=== PATIENT | female | born 1955 | race Caucasian/White ===

== ENCOUNTER 2016-05-09 15:20 | Emergency (ER) | payer OTHER ==
[~2016-05-09 15:20] MED LIST: ADV250INH INH; ALBU17IN INH; ATOR1TAB18 PO; CARV6.25 PO; CLAR10CA3 PO; CLOP75TA2 PO; CORE6.25 OR; CYCL10TA PO; DIGO0.25 PO; DITR5TAB PO; ESTR3TA OR; ESTR3TA PO; ESTROGENS CONJ PO; FLEXERIL OR; FLON0.05 INH; FLON0.054; FLON1SPR; FURO40TA2 PO; IPRASOL4 INH; LANO0.252 OR; LANO250T12 PO; LASI40TA OR; LEVO150T7 PO; LEVO175T2 PO; LIPI80TA OR; LISI-542 PO; LISI10TA4 OR; LISI10TA4 PO; LORA10TA2 PO; LORATADINE OR; MAGN500T2 OR; NITR0.1S SL; NITR0.4S SL; NITR4TASL SL; NORT25CA2 PO; OXYB5TAB4 OR; PLAV75TA2; PLAV75TA2 OR; RANI15TA PO; SPIR1CAP INH; SYNT50TA OR; VITA10002 PO; VITA1CAP2 PO; VITMTA PO; ZANT150T OR; ZETI10TA2 PO
--- NOTE | 2016-05-09 18:47 | EDDOCDS ---
Physician Documentation [facility] Name: Ivy Amaro Age: 61 yrs Sex: Female : 1955 Arrival Date: 05/09/2016 Time: 15:20 Bed TR7 Private MD: Damon Duffy MD Disposition: 05/09/16 18:32 Discharged to Home/Self Care. Impression: Laceration without foreign body of right ring finger with damage to nail. - Condition is Stable. - Discharge Instructions: Tissue Adhesive Wound Care, [id number]. - Medication Reconciliation, Local Pharmacy Hours form. - Follow up: Damon Duffy; When: Call to arrange an appointment; Reason: Further diagnostic work-up, Recheck today's complaints, Continuance of care. - Problem is new. - Symptoms are unchanged. Historical: - Allergies: Aspirin; PENICILLINS; - Home Meds: 1. Advair Diskus 500-50 mcg/dose Inhl dsdv 1 puff 2 times per day 2. atorvastatin 80 mg oral tab 1 tab once daily 3. carvedilol 6.25 mg oral tab 2 times per day 4. clopidogrel 75 mg oral tab 1 tab once daily (Last dose: 05/09/2016) 5. cyclobenzaprine 10 mg Oral tab every night as needed 6. Digoxin 0.25mg Oral once daily 7. estrogens 0.3mg daily 8. ezetimibe 10 mg oral tab 1 tab once daily 9. fluticasone 50 mcg/actuation nasal spsn 10. furosemide 40 mg Oral tab 1 tab once daily 11. ipratropium-albuterol 0.5 mg-3 mg(2.5 mg base)/3 mL Inhl nebu 2 to 3 times a day 12. Levothyroxine 0.175 mg Oral once daily 13. lisinopril 10 mg Oral tab 1 tab once daily 14. loratadine 10 mg Oral TbDL 1 tab once daily 15. multivitamin Oral tab daily 16. nitroglycerine lingual spray as needed 17. nortriptyline 25 mg Oral cap at bedtime 18. oxybutynin chloride 5 mg Oral tab daily 19. ranitidine HCl 150 mg Oral cap 1 cap once daily 20. Spiriva with HandiHaler 18 mcg Inhl CpDv 1 cap once daily 21. Vitamin B-12 1,000 mcg Oral tab daily 22. Vitamin D D3 1000 mcg Oral daily - PMHx: CHF; CVA; Hypercholesterolemia; Hypothyroidism; [place]; - PSHx: CABG x 2; Stents x 2; Defribillator (AID); Appendectomy; - Immunization history:: Last tetanus immunization: unknown. - Family history: Not pertinent. - Social history: Smoking status: Patient states former smoker of tobacco. No barriers to communication noted. - : The pt / caregiver states he / she is not on anticoagulants. Home medication list is obtained from the patient. - Exposure Risk Screening:: None identified. Vital Signs: 05/09 15:23 BP 147 / 87; Pulse 110; Resp 18; Temp 97.6(O); Pulse Ox 100% on R/A; Weight 46.72 kg / ct3 103 lbs (R); Height 5 ft. 0 in. (152.40 cm) (R); Pain 7/10; 18:34 BP 115 / 68; Pulse 88; Resp 18; Temp 98.7; Pulse Ox 96% on R/A; Pain 6/10; ar3 15:23 Body Mass Index 20.12 (46.72 kg, 152.40 cm) ct3 Procedures: 18:28 Laceration repair:. btw Laceration: 18:28 Wound Repair of 0.2cm ( 0.1in ) full thickness laceration to palmar aspect of distal btw phalanx of right ring finger. Distal neuro/vascular/tendon intact. Wound prep: Simple cleansing by provider. Skin closed with 1 thin layer Dermabond using .. Dressed with bandaid. Patient tolerated well. MDM: 18:32 Financial registration complete. [email or web address] 18:33 [facility] Payment Agreement was scanned into [employer] and attached to record. [email or web address] Signatures: Karla TopeteRN RN kr3 Jose Patino PA PA jose guadalupew Genia Melendrez RN RN [facility] Heidi Barlow, Reg Reg [email or web address] The chart was reviewed and I authenticate all verbal orders and agree with the evaluation and treatment provided.Attachments: 18:33 [facility] Payment Agreement [email or web address] MTDD
--- NOTE | 2016-05-09 18:47 | EDDOCDS ---
Nurse's Notes [facility] Name: Ivy Amaro Age: 61 yrs Sex: Female : 1955 Arrival Date: 05/09/2016 Time: 15:20 Bed TR7 Private MD: Damon Duffy MD Diagnosis: Laceration without foreign body of right ring finger with damage to nail Presentation: 05/09 15:32 Presenting complaint: Patient states: cut tip of right fourth finger on scissors while [facility] trying to open package, on Plavix. Adult Sepsis Screening: The patient does not have new or worsening altered mentation. Patient's respiratory rate is less than 22. Systolic blood pressure is greater than 100. Patient has a qSOFA score of 0- Negative Sepsis Screen. Suicide/Homicide risk assessment- the patient denies having any suicidal and/or homicidal ideations and does not present with any other emotional, behavioral or mental health complaints. 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 Transition of care: patient was not received from another setting of care. 15:32 Acuity: MICHELET Level 4 [facility] 15:32 Method Of Arrival: Walkin/Carried/Asstd [facility] Triage Assessment: 15:38 General: Appears in no apparent distress, comfortable, Behavior is appropriate for age, [facility] cooperative. Pain: Location: palmar aspect of distal phalanx of right ring finger Pain currently is 5 out of 10 on a pain scale. HIV screening NA for this visit Offered previously. Injury Description: Laceration sustained to palmar aspect of distal phalanx of right ring finger is 0.5 to 2.5 cm long, not bleeding, home dressing saturated with bright red blood, fresh pressure dressing applied, no further bleeding noted on dressing, ice has been applied. Historical: - Allergies: Aspirin; PENICILLINS; - Home Meds: 1. Advair Diskus 500-50 mcg/dose Inhl dsdv 1 puff 2 times per day 2. atorvastatin 80 mg oral tab 1 tab once daily 3. carvedilol 6.25 mg oral tab 2 times per day 4. clopidogrel 75 mg oral tab 1 tab once daily (Last dose: 05/09/2016) 5. cyclobenzaprine 10 mg Oral tab every night as needed 6. Digoxin 0.25mg Oral once daily 7. estrogens 0.3mg daily 8. ezetimibe 10 mg oral tab 1 tab once daily 9. fluticasone 50 mcg/actuation nasal spsn 10. furosemide 40 mg Oral tab 1 tab once daily 11. ipratropium-albuterol 0.5 mg-3 mg(2.5 mg base)/3 mL Inhl nebu 2 to 3 times a day 12. Levothyroxine 0.175 mg Oral once daily 13. lisinopril 10 mg Oral tab 1 tab once daily 14. loratadine 10 mg Oral TbDL 1 tab once daily 15. multivitamin Oral tab daily 16. nitroglycerine lingual spray as needed 17. nortriptyline 25 mg Oral cap at bedtime 18. oxybutynin chloride 5 mg Oral tab daily 19. ranitidine HCl 150 mg Oral cap 1 cap once daily 20. Spiriva with HandiHaler 18 mcg Inhl CpDv 1 cap once daily 21. Vitamin B-12 1,000 mcg Oral tab daily 22. Vitamin D D3 1000 mcg Oral daily - PMHx: CHF; CVA; Hypercholesterolemia; Hypothyroidism; [place]; - PSHx: CABG x 2; Stents x 2; Defribillator (AID); Appendectomy; - Immunization history:: Last tetanus immunization: unknown. - Family history: Not pertinent. - Social history: Smoking status: Patient states former smoker of tobacco. No barriers to communication noted. - : The pt / caregiver states he / she is not on anticoagulants. Home medication list is obtained from the patient. - Exposure Risk Screening:: None identified. Screenin:44 Screening information is obtained from the patient. Fall risk: No risks identified. kr3 Assistance ADL's: requires no assistance with activities of daily living. Abuse/DV Screen: The patient / caregiver reports he/she is: not in a situation that causes fear, pain or injury. Nutritional screening: No deficits noted. Advance Directives: Currently, there is no health care proxy. home support is adequate. Assessment: 18:45 General: Appears in no apparent distress, comfortable, Behavior is cooperative. kr3 Neurological: No deficits noted. Respiratory: Respiratory effort is even, unlabored. Derm: Skin is normal. Vital Signs: 15:23 BP 147 / 87; Pulse 110; Resp 18; Temp 97.6(O); Pulse Ox 100% on R/A; Weight 46.72 kg ct3 (R); Height 5 ft. 0 in. (152.40 cm) (R); Pain 7/10; 18:34 BP 115 / 68; Pulse 88; Resp 18; Temp 98.7; Pulse Ox 96% on R/A; Pain 6/10; ar3 15:23 Body Mass Index 20.12 (46.72 kg, 152.40 cm) ct3 Vitals: 15:23 Log In Time: May 09, 2016 at 15:20. ct3 ED Course: 15:22 Patient visited by Pam Manzanares PCA. ct3 15:22 Lozano [facility] is Private Physician. ct3 15:22 Damon Duffy is Private Physician. ct3 15:22 Patient moved to Waiting ct3 15:26 Patient moved to Pre RCE ct3 15:34 Triage Initiated [facility] 17:53 Genia Melendrez,RN is Primary Nurse. ar3 17:53 Karla Topete,RN is Primary Nurse. ar3 17:53 Patient moved to Triage 1 ar3 18:17 Jose Patino PA is PHCP. btw 18:17 Fran Zavala MD is Attending Physician. btw 18:17 Patient visited by Jose Patino PA. btw 18:30 Damon Duffy is Referral Physician. btw 18:33 [facility] Payment Agreement was scanned into [employer] and attached to record. ks16 18:35 Patient visited by Gianna Allen PCA. ar3 18:44 Patient moved to TR7 kr3 18:45 The patient / caregiver is instructed regarding the plan of care and ED course. Patient kr3 has correct armband on for positive identification. 18:45 No IV's were initiated during this patient's visit. No procedures done that require kr3 assistance. Order Results: There are currently no results for this order. Outcome: 18:32 Discharge ordered by Provider. btw 18:45 Discharge Assessment: patient administered narcotics - no. The following High Risk kr3 Discharge criteria are identified: None. Discharged to home ambulatory. Condition: stable. Discharge instructions given to patient, Instructed on discharge instructions, follow up and referral plans. wound care, Demonstrated understanding of instructions, Pt was receptive of discharge instructions/ teaching. No special radiology studies were completed. Property sent home with patient. 18:46 Patient left the ED. kr3 Signatures: Karla Topete,RN RN kr3 Gianna Allen, CASE COORDINATOR CASE COORDINATOR ar3 Jose Patino PA PA btw Pam Manzanares, CASE COORDINATOR CASE COORDINATOR ct3 Genia MelendrezRN RN [facility] Heidi Barlow, Reg Reg ks16 MTDD
--- NOTE | 2016-05-11 19:47 | EDDOCDS ---
Physician Documentation [facility] Name: Ivy Amaro Age: 61 yrs Sex: Female : 1955 Arrival Date: 05/09/2016 Time: 15:20 Bed TR7 Private MD: Damon Duffy MD Disposition: 05/09/16 18:32 Discharged to Home/Self Care. Impression: Laceration without foreign body of right ring finger with damage to nail. - Condition is Stable. - Discharge Instructions: Tissue Adhesive Wound Care, [id number]. - Medication Reconciliation, Local Pharmacy Hours form. - Follow up: Damon Duffy; When: Call to arrange an appointment; Reason: Further diagnostic work-up, Recheck today's complaints, Continuance of care. - Problem is new. - Symptoms are unchanged. Historical: - Allergies: Aspirin; PENICILLINS; - Home Meds: 1. Advair Diskus 500-50 mcg/dose Inhl dsdv 1 puff 2 times per day 2. atorvastatin 80 mg oral tab 1 tab once daily 3. carvedilol 6.25 mg oral tab 2 times per day 4. clopidogrel 75 mg oral tab 1 tab once daily (Last dose: 05/09/2016) 5. cyclobenzaprine 10 mg Oral tab every night as needed 6. Digoxin 0.25mg Oral once daily 7. estrogens 0.3mg daily 8. ezetimibe 10 mg oral tab 1 tab once daily 9. fluticasone 50 mcg/actuation nasal spsn 10. furosemide 40 mg Oral tab 1 tab once daily 11. ipratropium-albuterol 0.5 mg-3 mg(2.5 mg base)/3 mL Inhl nebu 2 to 3 times a day 12. Levothyroxine 0.175 mg Oral once daily 13. lisinopril 10 mg Oral tab 1 tab once daily 14. loratadine 10 mg Oral TbDL 1 tab once daily 15. multivitamin Oral tab daily 16. nitroglycerine lingual spray as needed 17. nortriptyline 25 mg Oral cap at bedtime 18. oxybutynin chloride 5 mg Oral tab daily 19. ranitidine HCl 150 mg Oral cap 1 cap once daily 20. Spiriva with HandiHaler 18 mcg Inhl CpDv 1 cap once daily 21. Vitamin B-12 1,000 mcg Oral tab daily 22. Vitamin D D3 1000 mcg Oral daily - PMHx: CHF; CVA; Hypercholesterolemia; Hypothyroidism; [place]; - PSHx: CABG x 2; Stents x 2; Defribillator (AID); Appendectomy; - Immunization history:: Last tetanus immunization: unknown. - Family history: Not pertinent. - Social history: Smoking status: Patient states former smoker of tobacco. No barriers to communication noted. - : The pt / caregiver states he / she is not on anticoagulants. Home medication list is obtained from the patient. - Exposure Risk Screening:: None identified. Vital Signs: 05/09 15:23 BP 147 / 87; Pulse 110; Resp 18; Temp 97.6(O); Pulse Ox 100% on R/A; Weight 46.72 kg / ct3 103 lbs (R); Height 5 ft. 0 in. (152.40 cm) (R); Pain 7/10; 18:34 BP 115 / 68; Pulse 88; Resp 18; Temp 98.7; Pulse Ox 96% on R/A; Pain 6/10; ar3 15:23 Body Mass Index 20.12 (46.72 kg, 152.40 cm) ct3 Procedures: 18:28 Laceration repair:. btw Laceration: 18:28 Wound Repair of 0.2cm ( 0.1in ) full thickness laceration to palmar aspect of distal btw phalanx of right ring finger. Distal neuro/vascular/tendon intact. Wound prep: Simple cleansing by provider. Skin closed with 1 thin layer Dermabond using .. Dressed with bandaid. Patient tolerated well. MDM: 18:32 Financial registration complete. [facility] 18:33 [facility] Payment Agreement was scanned into [employer] and attached to record. [facility] 05/10 12:23 T-Sheet-- Draft Copy was scanned into [employer] and attached to record. gb Signatures: Sarita Luciano, Reg Reg gb Karla Topete RN RN kr3 Jose Patino PA PA btw Genia Melendrez RN RN [facility] Heidi Barlow, Reg Reg ks16 The chart was reviewed and I authenticate all verbal orders and agree with the evaluation and treatment provided.Attachments: 05/09 18:33 [facility] Payment Agreement [facility] 05/10 12:23 T-Sheet-- Draft Copy gb Chart Complete MTDD
--- NOTE | 2016-05-11 19:47 | EDDOCDS ---
Physician Documentation [facility] Name: Ivy Amaro Age: 61 yrs Sex: Female : 1955 Arrival Date: 05/09/2016 Time: 15:20 Bed TR7 Private MD: Damon Duffy MD Disposition: 05/09/16 18:32 Discharged to Home/Self Care. Impression: Laceration without foreign body of right ring finger with damage to nail. - Condition is Stable. - Discharge Instructions: Tissue Adhesive Wound Care, [id number]. - Medication Reconciliation, Local Pharmacy Hours form. - Follow up: Damon Duffy; When: Call to arrange an appointment; Reason: Further diagnostic work-up, Recheck today's complaints, Continuance of care. - Problem is new. - Symptoms are unchanged. Historical: - Allergies: Aspirin; PENICILLINS; - Home Meds: 1. Advair Diskus 500-50 mcg/dose Inhl dsdv 1 puff 2 times per day 2. atorvastatin 80 mg oral tab 1 tab once daily 3. carvedilol 6.25 mg oral tab 2 times per day 4. clopidogrel 75 mg oral tab 1 tab once daily (Last dose: 05/09/2016) 5. cyclobenzaprine 10 mg Oral tab every night as needed 6. Digoxin 0.25mg Oral once daily 7. estrogens 0.3mg daily 8. ezetimibe 10 mg oral tab 1 tab once daily 9. fluticasone 50 mcg/actuation nasal spsn 10. furosemide 40 mg Oral tab 1 tab once daily 11. ipratropium-albuterol 0.5 mg-3 mg(2.5 mg base)/3 mL Inhl nebu 2 to 3 times a day 12. Levothyroxine 0.175 mg Oral once daily 13. lisinopril 10 mg Oral tab 1 tab once daily 14. loratadine 10 mg Oral TbDL 1 tab once daily 15. multivitamin Oral tab daily 16. nitroglycerine lingual spray as needed 17. nortriptyline 25 mg Oral cap at bedtime 18. oxybutynin chloride 5 mg Oral tab daily 19. ranitidine HCl 150 mg Oral cap 1 cap once daily 20. Spiriva with HandiHaler 18 mcg Inhl CpDv 1 cap once daily 21. Vitamin B-12 1,000 mcg Oral tab daily 22. Vitamin D D3 1000 mcg Oral daily - PMHx: CHF; CVA; Hypercholesterolemia; Hypothyroidism; [place]; - PSHx: CABG x 2; Stents x 2; Defribillator (AID); Appendectomy; - Immunization history:: Last tetanus immunization: unknown. - Family history: Not pertinent. - Social history: Smoking status: Patient states former smoker of tobacco. No barriers to communication noted. - : The pt / caregiver states he / she is not on anticoagulants. Home medication list is obtained from the patient. - Exposure Risk Screening:: None identified. Vital Signs: 05/09 15:23 BP 147 / 87; Pulse 110; Resp 18; Temp 97.6(O); Pulse Ox 100% on R/A; Weight 46.72 kg / ct3 103 lbs (R); Height 5 ft. 0 in. (152.40 cm) (R); Pain 7/10; 18:34 BP 115 / 68; Pulse 88; Resp 18; Temp 98.7; Pulse Ox 96% on R/A; Pain 6/10; ar3 15:23 Body Mass Index 20.12 (46.72 kg, 152.40 cm) ct3 Procedures: 18:28 Laceration repair:. btw Laceration: 18:28 Wound Repair of 0.2cm ( 0.1in ) full thickness laceration to palmar aspect of distal btw phalanx of right ring finger. Distal neuro/vascular/tendon intact. Wound prep: Simple cleansing by provider. Skin closed with 1 thin layer Dermabond using .. Dressed with bandaid. Patient tolerated well. MDM: 18:32 Financial registration complete. [facility] 18:33 [facility] Payment Agreement was scanned into [employer] and attached to record. [facility] 05/10 12:23 T-Sheet-- Draft Copy was scanned into [employer] and attached to record. gb Signatures: Sarita Luciano, Reg Reg gb Karla Topete RN RN kr3 Jose Patino PA PA btw Genia Melendrez RN RN [facility] Heidi Barlow, Reg Reg ks16 The chart was reviewed and I authenticate all verbal orders and agree with the evaluation and treatment provided.Attachments: 05/09 18:33 [facility] Payment Agreement [facility] 05/10 12:23 T-Sheet-- Draft Copy gb Chart Complete MTDD
--- NOTE | 2016-05-11 19:47 | EDDOCDS ---
Nurse's Notes Name: Ivy Amaro Age: 61 yrs Sex: Female : 1955 Arrival Date: 05/09/2016 Time: 15:20 Bed TR7 Private MD: Damon Duffy MD Diagnosis: Laceration without foreign body of right ring finger with damage to nail Presentation: 05/09 15:32 Presenting complaint: Patient states: cut tip of right fourth finger on scissors while [facility] trying to open package, on Plavix. Adult Sepsis Screening: The patient does not have new or worsening altered mentation. Patient's respiratory rate is less than 22. Systolic blood pressure is greater than 100. Patient has a qSOFA score of 0- Negative Sepsis Screen. Suicide/Homicide risk assessment- the patient denies having any suicidal and/or homicidal ideations and does not present with any other emotional, behavioral or mental health complaints. 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 Transition of care: patient was not received from another setting of care. 15:32 Acuity: MICHELET Level 4 [facility] 15:32 Method Of Arrival: Walkin/Carried/Asstd [facility] Triage Assessment: 15:38 General: Appears in no apparent distress, comfortable, Behavior is appropriate for age, [facility] cooperative. Pain: Location: palmar aspect of distal phalanx of right ring finger Pain currently is 5 out of 10 on a pain scale. HIV screening NA for this visit Offered previously. Injury Description: Laceration sustained to palmar aspect of distal phalanx of right ring finger is 0.5 to 2.5 cm long, not bleeding, home dressing saturated with bright red blood, fresh pressure dressing applied, no further bleeding noted on dressing, ice has been applied. Historical: - Allergies: Aspirin; PENICILLINS; - Home Meds: 1. Advair Diskus 500-50 mcg/dose Inhl dsdv 1 puff 2 times per day 2. atorvastatin 80 mg oral tab 1 tab once daily 3. carvedilol 6.25 mg oral tab 2 times per day 4. clopidogrel 75 mg oral tab 1 tab once daily (Last dose: 05/09/2016) 5. cyclobenzaprine 10 mg Oral tab every night as needed 6. Digoxin 0.25mg Oral once daily 7. estrogens 0.3mg daily 8. ezetimibe 10 mg oral tab 1 tab once daily 9. fluticasone 50 mcg/actuation nasal spsn 10. furosemide 40 mg Oral tab 1 tab once daily 11. ipratropium-albuterol 0.5 mg-3 mg(2.5 mg base)/3 mL Inhl nebu 2 to 3 times a day 12. Levothyroxine 0.175 mg Oral once daily 13. lisinopril 10 mg Oral tab 1 tab once daily 14. loratadine 10 mg Oral TbDL 1 tab once daily 15. multivitamin Oral tab daily 16. nitroglycerine lingual spray as needed 17. nortriptyline 25 mg Oral cap at bedtime 18. oxybutynin chloride 5 mg Oral tab daily 19. ranitidine HCl 150 mg Oral cap 1 cap once daily 20. Spiriva with HandiHaler 18 mcg Inhl CpDv 1 cap once daily 21. Vitamin B-12 1,000 mcg Oral tab daily 22. Vitamin D D3 1000 mcg Oral daily - PMHx: CHF; CVA; Hypercholesterolemia; Hypothyroidism; [place]; - PSHx: CABG x 2; Stents x 2; Defribillator (AID); Appendectomy; - Immunization history:: Last tetanus immunization: unknown. - Family history: Not pertinent. - Social history: Smoking status: Patient states former smoker of tobacco. No barriers to communication noted. - : The pt / caregiver states he / she is not on anticoagulants. Home medication list is obtained from the patient. - Exposure Risk Screening:: None identified. Screenin:44 Screening information is obtained from the patient. Fall risk: No risks identified. kr3 Assistance ADL's: requires no assistance with activities of daily living. Abuse/DV Screen: The patient / caregiver reports he/she is: not in a situation that causes fear, pain or injury. Nutritional screening: No deficits noted. Advance Directives: Currently, there is no health care proxy. home support is adequate. Assessment: 18:45 General: Appears in no apparent distress, comfortable, Behavior is cooperative. kr3 Neurological: No deficits noted. Respiratory: Respiratory effort is even, unlabored. Derm: Skin is normal. Vital Signs: 15:23 BP 147 / 87; Pulse 110; Resp 18; Temp 97.6(O); Pulse Ox 100% on R/A; Weight 46.72 kg ct3 (R); Height 5 ft. 0 in. (152.40 cm) (R); Pain 7/10; 18:34 BP 115 / 68; Pulse 88; Resp 18; Temp 98.7; Pulse Ox 96% on R/A; Pain 6/10; ar3 15:23 Body Mass Index 20.12 (46.72 kg, 152.40 cm) ct3 Vitals: 15:23 Log In Time: May 09, 2016 at 15:20. ct3 ED Course: 15:22 Patient visited by Pam Manzanares PCA. ct3 15:22 Lozano [facility] is Private Physician. ct3 15:22 Damon Duffy is Private Physician. ct3 15:22 Patient moved to Waiting ct3 15:26 Patient moved to Pre RCE ct3 15:34 Triage Initiated [facility] 17:53 Genia Melendrez,RN is Primary Nurse. ar3 17:53 Karla Topete,RN is Primary Nurse. ar3 17:53 Patient moved to Triage 1 ar3 18:17 Jose Patino PA is PHCP. btw 18:17 Fran Zavala MD is Attending Physician. btw 18:17 Patient visited by Jose Patino PA. btw 18:30 Damon Duffy is Referral Physician. btw 18:33 [facility] Payment Agreement was scanned into [employer] and attached to record. ks16 18:35 Patient visited by Gianna Allen PCA. ar3 18:44 Patient moved to TR7 kr3 18:45 The patient / caregiver is instructed regarding the plan of care and ED course. Patient kr3 has correct armband on for positive identification. 18:45 No IV's were initiated during this patient's visit. No procedures done that require kr3 assistance. 20:36 Patient name changed from Ivy\S\\S\Amaro\S\ to Ivy\S\ \S\Amaro. EDMS 05/10 12:23 T-Sheet-- Draft Copy was scanned into [employer] and attached to record. gb Order Results: There are currently no results for this order. Outcome: 05/09 18:32 Discharge ordered by Provider. btw 18:45 Discharge Assessment: patient administered narcotics - no. The following High Risk kr3 Discharge criteria are identified: None. Discharged to home ambulatory. Condition: stable. Discharge instructions given to patient, Instructed on discharge instructions, follow up and referral plans. wound care, Demonstrated understanding of instructions, Pt was receptive of discharge instructions/ teaching. No special radiology studies were completed. Property sent home with patient. 18:46 Patient left the ED. kr3 Signatures: Dispatcher [employer] EDMS Sarita Luciano, Reg Reg gb Karla Topete,RN RN kr3 Gianna Allen, YARD INSPECTOR YARD INSPECTOR ar3 Jose Patino PA PA btw Pam Manzanares, YARD INSPECTOR YARD INSPECTOR ct3 Genia Melendrez RN RN Heidi Monique, Reg Reg ks16 Chart Complete MTDD
== END 2016-05-09 18:46 | disposition home or self-care (01) ==
LOC: M ED 15:20
DX: S61.214A Laceration without foreign body of right ring finger without damage to nail, initial encounter (principal); W27.2XXA Contact with scissors, initial encounter; Y92.098 Other place in other non-institutional residence as the place of occurrence of the external cause; Y93.89 Activity, other specified; Y99.8 Other external cause status; I50.9 Heart failure, unspecified; I25.2 Old myocardial infarction; E78.00 Pure hypercholesterolemia, unspecified; E03.9 Hypothyroidism, unspecified; Z86.73 Personal history of transient ischemic attack (TIA), and cerebral infarction without residual deficits; Z79.899 Other long term (current) drug therapy; Z79.02 Long term (current) use of antithrombotics/antiplatelets; Z79.51 Long term (current) use of inhaled steroids; Z95.5 Presence of coronary angioplasty implant and graft; Z95.1 Presence of aortocoronary bypass graft; Z95.810 Presence of automatic (implantable) cardiac defibrillator

== ENCOUNTER → 2016-07-12 | Outpatient (CLI) | payer OTHER ==
[~2016-07-12] MED LIST changes: +FLOM5CAP PO; -LANO250T12 PO; +LANO250T15 PO; +OXYC15TA76 PO; +VALI5TAB PO
--- NOTE | 2016-07-13 02:59 | REP ---
Clinical: Left flank pain. Comparison: 05/26/2009. Findings: Lung bases clear. Visualized heart and pericardium normal. Atherosclerotic changes to the vasculature noted without aneurysm. Liver, spleen, pancreas, gallbladder, bilateral adrenal glands and kidneys are within normal limits. Specifically, there is no perinephric stranding, hydroureteronephrosis, intrarenal or obstructing ureteral calculi. The enteric system is without obstruction or acute inflammatory process. Pelvis demonstrates normal bladder and evidence for prior hysterectomy. No free air. No free fluid. No intraperitoneal or retroperitoneal adenopathy. No obvious mass lesion. Musculoskeletal structures demonstrate age-related changes without focal osseous abnormality. Impression: Essentially normal noncontrast CT of the abdomen and pelvis. No evidence for nephroureterolithiasis. Signed by Nick Bazan MD 07/13/2016 02:50 A
== END ==
LOC: M RAD 17:51
PROVIDERS: ATTEND Internal Medicine
DX: R10.9 Unspecified abdominal pain (principal); R31.9 Hematuria, unspecified; N28.9 Disorder of kidney and ureter, unspecified; I25.10 Atherosclerotic heart disease of native coronary artery without angina pectoris; I50.9 Heart failure, unspecified

== ENCOUNTER 2016-07-14 17:41 | Emergency (ER) | payer OTHER ==
[~2016-07-14] VITALS: Ht 152.4 cm; Wt 56.7 kg
[~2016-07-14 17:41] MED LIST changes: -FLOM5CAP PO; -OXYC15TA76 PO; -VALI5TAB PO
[2016-07-14] MEDS ORDERED: FLOM5CAP PO (18:12)
[2016-07-14] MEDS ORDERED: OXYC15TA76 PO (18:12)
[2016-07-14] MEDS ORDERED: KETOROLAC 60 MG/2 ML VIAL (J1885) IM ONE (18:45)
[2016-07-14] MEDS ORDERED: VALI5TAB PO (19:20)
[2016-07-14 19:28] VITALS: BP 110/55
== END 2016-07-14 19:33 | disposition home or self-care (01) ==
LOC: M ED 18:45
DX: R10.30 Lower abdominal pain, unspecified (principal); M54.5 Low back pain; I25.10 Atherosclerotic heart disease of native coronary artery without angina pectoris; J44.9 Chronic obstructive pulmonary disease, unspecified; Z87.891 Personal history of nicotine dependence; Z88.6 Allergy status to analgesic agent; Z88.0 Allergy status to penicillin; Z79.899 Other long term (current) drug therapy; Z86.73 Personal history of transient ischemic attack (TIA), and cerebral infarction without residual deficits; Z95.5 Presence of coronary angioplasty implant and graft; G43.909 Migraine, unspecified, not intractable, without status migrainosus; I25.2 Old myocardial infarction; I50.20 Unspecified systolic (congestive) heart failure; J45.909 Unspecified asthma, uncomplicated; E03.9 Hypothyroidism, unspecified; F32.9 Major depressive disorder, single episode, unspecified
CPT/HCPCS: 81001; 87086; 96372; 99282; J1885

== ENCOUNTER → 2016-11-22 | Outpatient (CLI) | payer OTHER ==
[~2016-11-22] MED LIST changes: -ATOR1TAB18 PO; +ATOR80TA59 PO; +FLOM5CAP PO; +OXYC15TA76 PO; +VALI5TAB PO; -ZETI10TA2 PO; +ZETI10TA30 PO
[2016-11-22 17:13] LABS: ALBUMIN 3.8 GM/DL (3.2-5.2); CALCIUM LEVEL 9.8 MG/DL (8.8-10.2); CREATININE FOR GFR 1.06 MG/DL (0.55-1.02); GLOMERULAR FILTRATION RATE 55.9 (>45); MAGNESIUM LEVEL 2.3 MG/DL (1.8-2.4); PHOSPHORUS LEVEL 3.8 MG/DL (2.5-4.9)
[2016-11-22 17:59] LABS: MEAN CORPUSCULAR HEMOGLOBIN 34.1 pg (27.0-33.0); MEAN CORPUSCULAR VOLUME 97.5 fl (80.0-96.0); RED CELL DISTRIBUTION WIDTH 12.4 % (11.5-14.5); WHITE BLOOD COUNT 6.7 K/mm3 (4.0-10.0)
== END ==
LOC: M LAB 16:02
PROVIDERS: ATTEND Physician Assistant
DX: I50.42 Chronic combined systolic (congestive) and diastolic (congestive) heart failure (principal); E03.9 Hypothyroidism, unspecified

== ENCOUNTER → 2017-01-15 | Outpatient (CLI) | payer OTHER ==
--- NOTE | 2017-01-15 10:42 | REPMRS ---
Patient History The patient states she has not had a clinical breast exam in over a year. No known family history of cancer. Taking unspecified hormones for 10 years. Priors done at [facility] Digital Mammo Screening Bilat: January 15, 2017 - Exam #: [id number] Bilateral CC and MLO view(s) were taken. Technologist: Alana Garcia Technologist FINDINGS: The breast tissue is heterogeneously dense. This may lower the sensitivity of mammography. There has been no change in the appearance of the mammogram from the prior studies. There is a moderate amount of residual fibroglandular tissue which is fairly symmetric. There is no interval development of dominant mass, areas of architectural distortion, or clustered microcalcification typical of malignancy. ASSESSMENT: BI-RADS/ACR category 1 mammogram. Negative. Recommendation Routine screening mammogram in 1 year (for women over age 40). This mammogram was interpreted with the aid of an FDA-approved computer-aided dectection system. Electronically Signed By: Richard Damon MD 01/15/17 [id number]
== END ==
LOC: M RAD 09:16
PROVIDERS: ATTEND Internal Medicine
DX: Z12.4 Encounter for screening for malignant neoplasm of cervix (principal); Z86.79 Personal history of other diseases of the circulatory system

== ENCOUNTER → 2017-03-30 | Outpatient (REF) | payer OTHER ==
[2017-03-30 13:30] LABS: BLOOD UREA NITROGEN 19 MG/DL (7-18)
[2017-03-30 13:30] LABS: CREATININE FOR GFR 0.97 MG/DL (0.55-1.02); GLOMERULAR FILTRATION RATE > 60.0 (>45)
== END ==
LOC: M LABNEURO 11:52
DX: Z00.00 Encounter for general adult medical examination without abnormal findings (principal)

== ENCOUNTER → 2017-04-02 | Outpatient (CLI) | payer OTHER ==
[~2017-04-02] MED LIST changes: -ADV250INH INH; -ALBU17IN INH; -ATOR80TA59 PO; -CARV6.25 PO; -CLAR10CA3 PO; -CLOP75TA2 PO; -CORE6.25 OR; -CYCL10TA PO; -DIGO0.25 PO; -DITR5TAB PO; -ESTR3TA OR; -ESTR3TA PO; -ESTROGENS CONJ PO; -FLEXERIL OR; -FLOM5CAP PO; -FLON0.05 INH; -FLON0.054; -FLON1SPR; -FURO40TA2 PO; -IPRASOL4 INH; +ISOVUE-370 76% 100ML VIAL (Q9967) As Ordered; -LANO0.252 OR; -LANO250T15 PO; -LASI40TA OR; -LEVO150T7 PO; -LEVO175T2 PO; -LIPI80TA OR; -LISI-542 PO; -LISI10TA4 OR; -LISI10TA4 PO; -LORA10TA2 PO; -LORATADINE OR; -MAGN500T2 OR; -NITR0.1S SL; -NITR0.4S SL; -NITR4TASL SL; -NORT25CA2 PO; -OXYB5TAB4 OR; -OXYC15TA76 PO; -PLAV75TA2; -PLAV75TA2 OR; -RANI15TA PO; -SPIR1CAP INH; -SYNT50TA OR; -VALI5TAB PO; -VITA10002 PO; -VITA1CAP2 PO; -VITMTA PO; -ZANT150T OR; -ZETI10TA30 PO
== END ==
LOC: M RAD 17:47
DX: G45.9 Transient cerebral ischemic attack, unspecified (principal)

== ENCOUNTER → 2017-12-19 | Outpatient (CLI) | payer OTHER | LOC: M RAD 18:09 | DX: M50.223 Other cervical disc displacement at C6-C7 level (principal); M43.02 Spondylolysis, cervical region; R20.2 Paresthesia of skin | CPT/HCPCS: 72125 ==

== ENCOUNTER → 2018-07-01 | Outpatient (CLI) | payer OTHER ==
[~2018-07-01] MED LIST changes: +ACET1TAB55 PO; +ADV250INH INH; +ALBU17IN INH; +ATOR80TA59 PO; +CARV6.25 PO; +CLAR10CA3 PO; +CLOP75TA2 PO; +CORE6.25 OR; +CYCL10TA PO; +DIGO0.25 PO; +DITR5TAB PO; +ESTR3TA OR; +ESTR3TA PO; +ESTROGENS CONJ PO; +FLEXERIL OR; +FLOM0.4C39 PO; +FLON0.05 INH; +FLON0.054; +FLON1SPR; +FURO40TA2 PO; +IPRA0.00 INH; -ISOVUE-370 76% 100ML VIAL (Q9967) As Ordered; +LANO0.252 OR; +LANO250T15 PO; +LASI40TA OR; +LEVO150T7 PO; +LEVO175T2 PO; +LEVO200T4 PO; +LIPI80TA OR; +LISI-542 PO; +LISI10TA4 OR; +LISI10TA4 PO; +LORA-243 PO; +LORATADINE OR; +MAGN500T2 OR; +MOXI1TAB PO; +NITR0.1S SL; +NITR0.4S SL; +NITR4TASL SL; +NORT25CA2 PO; +OXYB5TAB4 OR; +OXYC15TA76 PO; +OYST500T91 PO; +PLAV75TA2; +PLAV75TA2 OR; +PRED10TA2 PO; +RANI15TA PO; +SPIR1CAP INH; +SYNT50TA OR; +VALI5TAB PO; +VITA-183 PO; +VITA10002 PO; +VITMTA PO; +ZANT150T OR; +ZETI10TA30 PO
--- NOTE | 2018-07-02 15:09 | REP ---
Clinical: Hematuria. Technique: Axial noncontrast images from the lung bases to the pubic symphysis with coronal and sagittal re-formations. Comparison: 07/12/2016. Findings: Evaluation of the urinary check system demonstrates mild age-related atrophy to the kidneys with increased central sinus fat, but no perinephric stranding, hydroureteronephrosis, intrarenal or obstructing ureteral calculi identified. Liver, spleen, pancreas, gallbladder, and bilateral adrenal glands are normal for noncontrast evaluation. The enteric system is without obstruction or acute inflammatory process. Normal cecum and terminal ileum identified in the right lower quadrant. Pelvis demonstrates normal bladder and evidence for prior hysterectomy. No ascites. No adenopathy. No free air. Atherosclerotic changes to the aorta and vasculature without aneurysm. Musculoskeletal structures without focal osseous abnormality. Impression: 1. No acute abdominopelvic pathology appreciated. 2. Age-related changes to the bilateral kidneys without hydroureteronephrosis or nephroureterolithiasis. Electronically Signed by Nick Bazan MD 07/02/2018 03:00 P
== END ==
LOC: M RAD 17:54
PROVIDERS: ATTEND Family Medicine
DX: N28.89 Other specified disorders of kidney and ureter (principal)

== ENCOUNTER → 2018-10-10 | Outpatient (CLI) | payer OTHER ==
[~2018-10-10] MED LIST changes: +CYAN100049 PO; -VITA10002 PO
--- NOTE | 2018-10-10 18:36 | REP ---
Chest x-ray: Two views. History: Chest pain. Comparison study: June 27, 2017. Findings: A unipolar pacemaker is seen in the right heart via the left side. The patient is status post prior median sternotomy. The heart is mildly enlarged unchanged. Pulmonary vasculature is not increased. Cardiothoracic ratio measures 47.5%. No other bony abnormality is seen. Impression: Prior sternotomy. Pacemaker. Mildly prominent heart. Otherwise no acute disease. A Electronically Signed by Naresh Berman MD 10/10/2018 06:28 P
== END ==
LOC: M RAD 17:08
PROVIDERS: ATTEND Internal Medicine
DX: I51.7 Cardiomegaly (principal); Z86.79 Personal history of other diseases of the circulatory system; Z95.0 Presence of cardiac pacemaker

== ENCOUNTER → 2018-10-16 | Outpatient (CLI) | payer OTHER ==
--- NOTE | 2018-10-17 05:45 | REP ---
Clinical: Bilateral carotid bruit Technique: Damon scale and color Doppler evaluation using linear high frequency transducer Findings: Two-dimensional damon scale and color images demonstrate mild amounts of mixed atheromatous plaquing with maintained laminar flow and no obvious appreciable narrowing. Color Doppler interrogation demonstrates normal arterial wave patterns and velocities with no significant spectral broadening. Normal flow direction is appreciated in the bilateral vertebral arteries. RIGHT (cm/s) LEFT (cm/s) ICA peak systolic velocity 40.7 75.7 ICA diastolic velocity 20.1 25.2 ECA peak systolic velocity 70.0 107.0 CCA peak systolic velocity 64.0 73.5 ICA/CCA ratio 0.74 0.74 Impression: No hemodynamically significant areas of narrowing or stenosis appreciated. Based on set standards narrowing falls within the less than 50% range. Electronically Signed by Nick Bazan MD 10/17/2018 05:36 A
== END ==
LOC: M RAD 10:37
PROVIDERS: ATTEND Internal Medicine
DX: I63.231 Cerebral infarction due to unspecified occlusion or stenosis of right carotid arteries (principal); Z86.73 Personal history of transient ischemic attack (TIA), and cerebral infarction without residual deficits

== ENCOUNTER → 2019-03-04 | Outpatient (CLI) | payer OTHER ==
[~2019-03-04] MED LIST changes: +ZETI10TA16 PO; -ZETI10TA30 PO
--- NOTE | 2019-03-04 18:34 | REP ---
Two-view chest: 03/04/2019. Indication: Dyspnea. Comparison: 10/10/2018. Findings: The hyperinflated lungs are clear. There is no pleural effusion or pneumothorax. The patient is status post median sternotomy with left-sided pacer/defibrillator. The lead is intact. Impression: No acute cardiopulmonary process. Electronically Signed by Jesse Tolentino DO 03/04/2019 06:25 P
== END ==
LOC: M RAD 17:36
PROVIDERS: ATTEND Physician Assistant
DX: J44.1 Chronic obstructive pulmonary disease with (acute) exacerbation (principal)

== ENCOUNTER → 2019-12-09 | Outpatient (CLI) | payer OTHER ==
[~2019-12-09] MED LIST changes: +CYCL-707 PO; -CYCL10TA PO; +OXYC-1 PO; -OXYC15TA76 PO
--- NOTE | 2019-12-16 08:43 | REP ---
LOW-DOSE LUNG SCREENING CLINICAL: High risk factors. COMPARISON: Chest CT dated 06/27/2017. FINDINGS: The bilateral lung hernandez are relatively well-aerated. Minimal scattered primarily lingular and left basilar scarring is appreciated. Few scattered subtle small 2-3 mm nodules and 3-4 mm nonsolid densities are identified and appear relatively stable as compared to prior examination. No consolidation, significant nodule, or mass lesion is appreciated. No effusion. No pneumothorax. Tracheobronchial tree is patent. Atherosclerotic changes to the thoracic aorta and coronary arteries noted along with pacemaker. IMPRESSION: Few scattered nodules and nonsolid densities are identified, but remain stable compared to 2018. Lung-RADS Category 2. Management and recommendations include annual low-dose surveillance. MTDD
== END ==
LOC: M RAD 13:49
PROVIDERS: ATTEND Internal Medicine
DX: Z12.2 Encounter for screening for malignant neoplasm of respiratory organs (principal); R91.8 Other nonspecific abnormal finding of lung field

== ENCOUNTER → 2020-04-23 | Outpatient (CLI) | payer OTHER ==
--- NOTE | 2020-04-23 19:16 | REP ---
INDICATION: STENOSIS COMPARISON: Comparison sonography October 16, 2018.. TECHNIQUE: Real-time ultrasound evaluation and duplex Doppler interrogation of the extracranial carotid vasculature is performed. FINDINGS: Antegrade flow is observed in both vertebral arteries. Right carotid: The right common carotid artery shows diffuse intimal thickening but is otherwise unremarkable. There ismild soft plaquing in the right carotid bulb and proximal ICA on two-dimensional scanning. Color flow and spectral Doppler interrogation are unremarkable on the right. Velocity chart right carotid: Right CCA PSV: 104 cm/S Right ICA PSV: 87 cm/S Right ICA EDV: 34 cm/S Right ECA PSV: 132 cm/S Right ICA/CCA ratio: 0.8 Left carotid: The left common carotid artery shows diffuse intimal thickening but is otherwise unremarkable. There is mild to moderate mixed plaquing in the left carotid bulb and proximal ICA on two-dimensional scanning. Color flow and spectral Doppler interrogation are unremarkable on the left. Velocity chart left carotid: Left CCA PSV: 117 cm/S Left ICA PSV: 180 cm/S Left ICA EDV: 38 cm/S Left ECA PSV: 179 cm/S Left ICA/CCA ratio: 1.5 IMPRESSION: Less than 50% category narrowing in the right internal carotid artery by Doppler velocity criteria. 50-69% category narrowing in the left ICA by Doppler velocity criteria. The left carotid Doppler velocities have increased since the prior study. <Electronically signed by Rusty Berman > 04/23/201911
== END ==
LOC: M RAD 13:11
PROVIDERS: ATTEND Internal Medicine
DX: I65.21 Occlusion and stenosis of right carotid artery (principal)

== ENCOUNTER → 2020-04-26 | Outpatient (CLI) | payer OTHER ==
[2020-04-26 10:03] LABS: CALCIUM LEVEL 9.2 MG/DL (8.8-10.2); CHOLESTEROL RISK RATIO 3.783 (<5); GLOMERULAR FILTRATION RATE 59.1 (>45); MAGNESIUM LEVEL 1.9 MG/DL (1.8-2.4); POTASSIUM SERUM 3.8 MEQ/L (3.5-5.1)
== END ==
LOC: M LAB 08:44
PROVIDERS: ATTEND Physician Assistant
DX: I50.42 Chronic combined systolic (congestive) and diastolic (congestive) heart failure (principal); I25.5 Ischemic cardiomyopathy; I49.01 Ventricular fibrillation

== ENCOUNTER → 2021-03-16 | Outpatient (CLI) | payer OTHER ==
[~2021-03-16] MED LIST changes: +DIGO0.253 PO; -LISI-542 PO; +LISI-898 PO; +LISI10TA22 PO; -LISI10TA4 PO; +VENTAER INH
--- NOTE | 2021-03-16 13:05 | REPVR ---
PROCEDURE INFORMATION: Exam: CT Lumbar Spine Without Contrast Exam date and time: 03/16/2021 12:45 PM Age: 66 years old Clinical indication: Low back pain; Additional info: Lbp w/ weakness / RT knee pain ? maciel cyst TECHNIQUE: Imaging protocol: Computed tomography images of the lumbar spine without contrast. Radiation optimization: All CT scans at this facility use at least one of these dose optimization techniques: automated exposure control; mA and/or kV adjustment per patient size (includes targeted exams where dose is matched to clinical indication); or iterative reconstruction. COMPARISON: CT ABD PELVIS W/O CONTRAST 07/01/2018 6:05 PM FINDINGS: Vertebrae: No acute fracture. Normal alignment. L1-L2: No significant disc protrusion. No severe spinal canal stenosis. No significant neural foraminal narrowing. L2-L3: No significant disc protrusion. No severe spinal canal stenosis. No significant neural foraminal narrowing. L3-L4: No significant disc protrusion. No severe spinal canal stenosis. No significant neural foraminal narrowing. L4-L5: No significant disc protrusion. No severe spinal canal stenosis. No significant neural foraminal narrowing. L5-S1: No significant disc protrusion. No severe spinal canal stenosis. No significant neural foraminal narrowing. Soft tissues: Unremarkable. IMPRESSION: No acute abnormality or advanced degenerative change. Electronically signed by: Iona Daigle On 03/16/2021 13:05:12 PM
--- NOTE | 2021-03-16 13:32 | REP ---
INDICATION: LBP W/ WEAKNESS / RT KNEE PAIN ? AVENDAÑO CYST. COMPARISON: None. TECHNIQUE: Real-time sonographic evaluation of the right knee posterior popliteal fossa to assess for fluid with Doppler FINDINGS: There are no abnormal fluid collections. IMPRESSION: There is no evidence of a Avendaño's cyst. <Electronically signed by Fito Jackson > 03/16/21 [id number]
== END ==
LOC: M RAD 12:23
PROVIDERS: ATTEND Psychiatry & Neurology Neurology
DX: R20.2 Paresthesia of skin (principal); R53.1 Weakness; M25.561 Pain in right knee

== ENCOUNTER → 2021-05-17 | Outpatient (CLI) | payer OTHER ==
[~2021-05-17] MED LIST changes: -LISI-898 PO; +LISI5TAB11 PO
== END ==
LOC: M RAD 15:00
PROVIDERS: ATTEND Internal Medicine
DX: Z12.2 Encounter for screening for malignant neoplasm of respiratory organs (principal); R91.8 Other nonspecific abnormal finding of lung field; I70.0 Atherosclerosis of aorta; I25.10 Atherosclerotic heart disease of native coronary artery without angina pectoris

== ENCOUNTER → 2022-01-06 | Outpatient (CLI) | payer OTHER ==
[2022-01-06 09:18] LABS: HEMATOCRIT 37.8 % (36.0-47.0); HEMOGLOBIN 12.9 g/dl (12.0-15.5); MEAN CORPUSCULAR HEMOGLOBIN 34.5 pg (27.0-33.0); MEAN CORPUSCULAR HGB CONC 34.1 g/dl (32.0-36.5); MEAN CORPUSCULAR VOLUME 101.1 fl (80.0-96.0); PLATELET COUNT, AUTOMATED 237 10^3/uL (150-450); RED BLOOD COUNT 3.74 10^6/uL (4.00-5.40); WHITE BLOOD COUNT 7.1 10^3/uL (4.0-10.0)
[2022-01-06 09:48] LABS: ALBUMIN 3.8 GM/DL (3.2-5.2); BILIRUBIN,TOTAL 0.7 MG/DL (0.2-1.0); CALCIUM LEVEL 9.6 MG/DL (8.8-10.2); CHOLESTEROL RISK RATIO 5.605 (<5); CREATININE FOR GFR 1.45 MG/DL (0.55-1.30); GLOMERULAR FILTRATION RATE 38.3 (>45); MAGNESIUM LEVEL 2.4 MG/DL (1.8-2.4); POTASSIUM SERUM 3.6 MEQ/L (3.5-5.1); TOTAL PROTEIN 6.9 GM/DL (6.4-8.2)
== END ==
LOC: M LAB 08:52
PROVIDERS: ATTEND Physician Assistant
DX: I25.10 Atherosclerotic heart disease of native coronary artery without angina pectoris (principal)

== ENCOUNTER → 2022-07-13 | Outpatient (CLI) | payer OTHER ==
[2022-07-13 17:17] LABS: CALCIUM LEVEL 9.4 MG/DL (8.3-10.6); CREATININE FOR GFR 1.03 MG/DL (0.55-1.30); GLOMERULAR FILTRATION RATE 56.7 (>45); MAGNESIUM LEVEL 1.6 MG/DL (1.8-2.4); POTASSIUM SERUM 3.8 MMOL/L (3.5-5.1)
== END ==
LOC: M RAD 15:59
PROVIDERS: ATTEND Physician Assistant
DX: Z12.2 Encounter for screening for malignant neoplasm of respiratory organs (principal); Z87.891 Personal history of nicotine dependence; I70.0 Atherosclerosis of aorta; I25.10 Atherosclerotic heart disease of native coronary artery without angina pectoris; Z95.0 Presence of cardiac pacemaker; I50.22 Chronic systolic (congestive) heart failure

== ENCOUNTER → 2023-01-11 | Outpatient (CLI) | payer OTHER ==
[~2023-01-11] MED LIST changes: +EZET10TA58 PO; -ZETI10TA16 PO
[2023-01-11 10:04] LABS: HEMATOCRIT 38.5 % (36.0-47.0); MEAN CORPUSCULAR HEMOGLOBIN 33.9 pg (27.0-33.0); MEAN CORPUSCULAR HGB CONC 33.8 g/dl (32.0-36.5); MEAN CORPUSCULAR VOLUME 100.3 fl (80.0-96.0); PLATELET COUNT, AUTOMATED 243 10^3/uL (150-450); RED BLOOD COUNT 3.84 10^6/uL (4.00-5.40); WHITE BLOOD COUNT 7.7 10^3/uL (4.0-10.0)
[2023-01-19 07:15] LABS: BLOOD UREA NITROGEN 29 MG/DL (8-27); GLOMERULAR FILTRATION RATE 39.7 (>59)
[2023-01-19 07:16] LABS: ALBUMIN 5.1 G/DL (3.9-4.9); ALKALINE PHOSPHATASE 127 IU/L (44-121); ALT/SGPT 29 IU/L (0-32); AST/SGOT 31 IU/L (0-40); BILIRUBIN,TOTAL 0.5 MG/DL (0.0-1.2); CALCIUM LEVEL 9.6 MG/DL (8.7-10.3); CARBON DIOXIDE LEVEL 26 mmol/L (20-29); CHLORIDE LEVEL 96 mmol/L (96-106); CHOLESTEROL LEVEL 158 MG/DL (100-199); CHOLESTEROL RISK RATIO 2.872 (<5); HDL CHOLESTEROL 55 MG/DL (>39); LDL CHOLESTEROL 76.2 MG/DL (<100); NON-HDL-C 103 MG/DL; POTASSIUM SERUM 3.5 mmol/L (3.5-5.2); SODIUM LEVEL 141 mmol/L (134-144); TRIGLYCERIDES LEVEL 134 MG/DL (0-149)
[2023-01-19 07:17] LABS: FREE T4 0.42 NG/DL (0.82-1.77); GLUCOSE, FASTING 108 MG/DL (70-99); VITAMIN B12 LEVEL 234 PG/ML (232-1245)
== END ==
LOC: M LAB 09:20
PROVIDERS: ATTEND Registered Nurse
DX: E11.9 Type 2 diabetes mellitus without complications (principal); E03.9 Hypothyroidism, unspecified

== ENCOUNTER 2023-07-25 08:54 | Day surgery (SDC) | payer OTHER ==
[~2023-07-25] VITALS: Ht 152.4 cm; Wt 57.8 kg
[~2023-07-25 08:54] MED LIST changes: +ALLE10TA62 PO; +ENTR1TAB PO; +LEVO-96 PO; +OXYB5TAB14 PO
[2023-07-25] MEDS: NS 1,000 ML IV ONE (09:36)
[2023-07-25 11:05] VITALS: TEMP 98.2
[2023-07-25 11:20] VITALS: BP 109/55; O2SAT 96
== END 2023-07-25 11:36 | disposition home or self-care (01) ==
LOC: M OPP 08:54
PROVIDERS: ATTEND Internal Medicine Gastroenterology
DX: D12.2 Benign neoplasm of ascending colon (principal); K64.0 First degree hemorrhoids; K55.20 Angiodysplasia of colon without hemorrhage; K57.30 Diverticulosis of large intestine without perforation or abscess without bleeding; I10 Essential (primary) hypertension; E78.00 Pure hypercholesterolemia, unspecified; E03.9 Hypothyroidism, unspecified; I25.2 Old myocardial infarction; Z95.0 Presence of cardiac pacemaker; Z86.73 Personal history of transient ischemic attack (TIA), and cerebral infarction without residual deficits; Z87.891 Personal history of nicotine dependence; Z88.8 Allergy status to other drugs, medicaments and biological substances; Z88.0 Allergy status to penicillin; Z91.040 Latex allergy status; Z79.899 Other long term (current) drug therapy

== ENCOUNTER → 2023-10-15 | Outpatient (CLI) | payer OTHER ==
[2023-10-15 12:47] LABS: HEMATOCRIT 39.5 % (36.0-47.0); HEMOGLOBIN 13.5 g/dl (12.0-15.5); MEAN CORPUSCULAR HEMOGLOBIN 33.9 pg (27.0-33.0); MEAN CORPUSCULAR HGB CONC 34.2 g/dl (32.0-36.5); MEAN CORPUSCULAR VOLUME 99.2 fl (80.0-96.0); PLATELET COUNT, AUTOMATED 257 10^3/uL (150-450); RED BLOOD COUNT 3.98 10^6/uL (4.00-5.40); WHITE BLOOD COUNT 7.4 10^3/uL (4.0-10.0)
[2023-10-15 13:03] LABS: THYROID STIMULATING HORMONE 12.247 uIU/ML (0.55-4.78)
[2023-10-15 13:11] LABS: ALBUMIN 3.7 G/DL (3.2-5.2); BILIRUBIN,TOTAL 0.7 MG/DL (0.3-1.2); CALCIUM LEVEL 9.4 MG/DL (8.3-10.6); CREATININE FOR GFR 1.06 MG/DL (0.55-1.30); GLOMERULAR FILTRATION RATE 54.7 (>45); MAGNESIUM LEVEL 1.7 MG/DL (1.8-2.4); POTASSIUM SERUM 3.5 MMOL/L (3.5-5.1); TOTAL PROTEIN 6.5 G/DL (5.7-8.2)
== END ==
LOC: M LAB 10:58
PROVIDERS: ATTEND Internal Medicine Cardiovascular Disease
DX: I50.22 Chronic systolic (congestive) heart failure (principal); I47.20 Ventricular tachycardia, unspecified; I25.2 Old myocardial infarction

== ENCOUNTER → 2024-01-29 | Outpatient (CLI) | payer OTHER | LOC: M PLAIMG 07:13 | PROVIDERS: ATTEND Physician Assistant | DX: R01.1 Cardiac murmur, unspecified (principal); I08.3 Combined rheumatic disorders of mitral, aortic and tricuspid valves ==

== ENCOUNTER → 2024-04-05 | Outpatient (CLI) | payer OTHER ==
[~2024-04-05] MED LIST changes: -ADV250INH INH; +ADVA1AER9 INH
[2024-04-05 09:06] LABS: HEMATOCRIT 39.1 % (36.0-47.0); HEMOGLOBIN 13.4 g/dl (12.0-15.5); MEAN CORPUSCULAR HEMOGLOBIN 33.6 pg (27.0-33.0); MEAN CORPUSCULAR HGB CONC 34.3 g/dl (32.0-36.5); PLATELET COUNT, AUTOMATED 239 10^3/uL (150-450); RED BLOOD COUNT 3.99 10^6/uL (4.00-5.40); WHITE BLOOD COUNT 7.1 10^3/uL (4.0-10.0)
[2024-04-05 09:33] LABS: ALBUMIN 3.8 G/DL (3.2-5.2); BILIRUBIN,TOTAL 0.6 MG/DL (0.3-1.2); CALCIUM LEVEL 9.2 MG/DL (8.3-10.6); CHOLESTEROL RISK RATIO 3.87 (<5); CREATININE FOR GFR 1.32 MG/DL (0.55-1.30); GLOMERULAR FILTRATION RATE 42.4 (>39); HDL CHOLESTEROL 39.2 MG/DL (>40); NON-HDL-C 112.8 MG/DL; POTASSIUM SERUM 3.9 MMOL/L (3.5-5.1); TOTAL PROTEIN 6.6 G/DL (5.7-8.2)
[2024-04-05 09:35] LABS: FREE T4 0.95 NG/DL (0.89-1.76); THYROID STIMULATING HORMONE 17.379 uIU/ML (0.55-4.78)
[2024-04-05 09:43] LABS: HEMOGLOBIN A1c 6.5 % (4.0-6.0)
== END ==
LOC: M LAB 08:23
PROVIDERS: ATTEND Registered Nurse
DX: E78.2 Mixed hyperlipidemia (principal); I50.9 Heart failure, unspecified; E03.9 Hypothyroidism, unspecified

== ENCOUNTER 2024-04-24 08:20 | Day surgery (SDC) | payer OTHER ==
[~2024-04-24] VITALS: Ht 152.4 cm; Wt 56.3 kg
[~2024-04-24 08:20] MED LIST changes: +ALBU2.5V10 INH; +CARV12.5 PO; +CETI-24 PO; +DAPA10TA5 PO; +EZET10TA21 PO; +FLUT1BLS2 INH; +IPRA2IN INH; +LEVO2TA PO; +MIDAZOLAM INJ 2MG/2ML VIAL As Ordered ONE; +PHENYLEPHRINE 10% OPHTH SOL 5ML OS PRN; +PROA1AER2 INH
[2024-04-24] MEDS: LIDOCAINE 3.5 % 1ML OPHTH TOPICAL GEL OU ONE (09:40)
[2024-04-24] MEDS: PHENYLEPHRINE 2.5% OPHTH SOL 2ML OS SCH (09:40)
[2024-04-24] MEDS: OFLOXACIN 0.3 % (OCUFLOX) OPTH SOL 5ML OS ONE (09:40)
[2024-04-24] MEDS: TROPICAMIDE 1% OPHTH SOLN 15ML OS SCH (09:40)
[2024-04-24] MEDS: CYCLOPENTOLATE 1% OPHTH SOLN 2ML BTL OS SCH (09:40)
[2024-04-24] MEDS: BSS IRRIG/VANCO(10MG)/TOBRA(5MG)/EPINEPH(1:1000-0.5CC)500ML BAG-ORONLY As Ordered ONE (10:40)
[2024-04-24] MEDS: CEFUROXIME 1MG/0.1ML INTRACAMERAL INJ As Ordered ONE (10:40)
[2024-04-24] MEDS: LIDOCAINE 1% SDV 5ML VIAL As Ordered ONE (10:40)
[2024-04-24 10:50] VITALS: BP 104/52; TEMP 97.1; O2SAT 96
== END 2024-04-24 11:21 | disposition home or self-care (01) ==
LOC: M SDC 08:20
PROVIDERS: ATTEND Ophthalmology
DX: H25.12 Age-related nuclear cataract, left eye (principal); I10 Essential (primary) hypertension; E78.5 Hyperlipidemia, unspecified; I25.10 Atherosclerotic heart disease of native coronary artery without angina pectoris; Z98.61 Coronary angioplasty status; Z95.0 Presence of cardiac pacemaker; Z87.891 Personal history of nicotine dependence; J44.9 Chronic obstructive pulmonary disease, unspecified; E03.9 Hypothyroidism, unspecified; Z79.51 Long term (current) use of inhaled steroids; Z86.73 Personal history of transient ischemic attack (TIA), and cerebral infarction without residual deficits; Z79.02 Long term (current) use of antithrombotics/antiplatelets; Z88.0 Allergy status to penicillin; Z91.040 Latex allergy status; Z88.8 Allergy status to other drugs, medicaments and biological substances
CPT/HCPCS: 66984; J0697; J2250; V2632

== ENCOUNTER 2024-05-08 08:55 | Day surgery (SDC) | payer OTHER ==
[~2024-05-08] VITALS: Ht 152.4 cm; Wt 56.1 kg
[~2024-05-08 08:55] MED LIST changes: -MIDAZOLAM INJ 2MG/2ML VIAL As Ordered ONE; +PHENYLEPHRINE 10% OPHTH SOL 5ML OD PRN; -PHENYLEPHRINE 10% OPHTH SOL 5ML OS PRN
[2024-05-08] MEDS ORDERED: MIDAZOLAM INJ 2MG/2ML VIAL As Ordered ONE (09:21)
[2024-05-08] MEDS ORDERED: fentaNYL 100 MCG/2 ML INJECTION As Ordered ONE (09:22)
[2024-05-08] MEDS: CYCLOPENTOLATE 1% OPHTH SOLN 2ML BTL OD SCH (10:16)
[2024-05-08] MEDS: PHENYLEPHRINE 2.5% OPHTH SOL 2ML OD SCH (10:16)
[2024-05-08] MEDS: TROPICAMIDE 1% OPHTH SOLN 15ML OD SCH (10:16)
[2024-05-08] MEDS: LIDOCAINE 3.5 % 1ML OPHTH TOPICAL GEL OU ONE (10:16)
[2024-05-08] MEDS: OFLOXACIN 0.3 % (OCUFLOX) OPTH SOL 5ML OD ONE (10:17)
[2024-05-08] MEDS: CEFUROXIME 1MG/0.1ML INTRACAMERAL INJ As Ordered ONE (10:58)
[2024-05-08] MEDS: LIDOCAINE 1% SDV 5ML VIAL As Ordered ONE (10:58)
[2024-05-08] MEDS: BSS IRRIG/VANCO(10MG)/TOBRA(5MG)/EPINEPH(1:1000-0.5CC)500ML BAG-ORONLY As Ordered ONE (10:58)
[2024-05-08 11:08] VITALS: BP 106/55; TEMP 97.3; O2SAT 96
== END 2024-05-08 11:21 | disposition home or self-care (01) ==
LOC: M SDC 08:55
PROVIDERS: ATTEND Ophthalmology
DX: H25.11 Age-related nuclear cataract, right eye (principal); I10 Essential (primary) hypertension; I25.10 Atherosclerotic heart disease of native coronary artery without angina pectoris; J44.9 Chronic obstructive pulmonary disease, unspecified; E03.9 Hypothyroidism, unspecified; N28.9 Disorder of kidney and ureter, unspecified; I25.2 Old myocardial infarction; E78.00 Pure hypercholesterolemia, unspecified; I69.398 Other sequelae of cerebral infarction; Z79.890 Hormone replacement therapy; Z79.899 Other long term (current) drug therapy; Z79.02 Long term (current) use of antithrombotics/antiplatelets; Z95.0 Presence of cardiac pacemaker; Z95.1 Presence of aortocoronary bypass graft; Z90.49 Acquired absence of other specified parts of digestive tract; Z88.0 Allergy status to penicillin; Z88.6 Allergy status to analgesic agent; Z87.891 Personal history of nicotine dependence
CPT/HCPCS: 66984; J0697; J2250; J3010; V2632

== ENCOUNTER → 2024-05-17 | Outpatient (CLI) | payer OTHER ==
[~2024-05-17] MED LIST changes: -PHENYLEPHRINE 10% OPHTH SOL 5ML OD PRN
[2024-05-17 10:46] LABS: FREE T4 2.61 NG/DL (0.89-1.76); THYROID STIMULATING HORMONE 0.043 uIU/ML (0.55-4.78)
[2024-05-17 16:35] LABS: FREE T3 4.8 PG/ML (2.3-4.2)
[2024-05-17 16:45] LABS: THYROGLOBULIN ANTIBODY > 500.0 U/ML (<60.0); THYROID PEROXIDASE ANTIBODY > 1300.0 U/ML (<60.0)
== END ==
LOC: M LAB 09:21
PROVIDERS: ATTEND Registered Nurse
DX: E03.9 Hypothyroidism, unspecified (principal)

== ENCOUNTER → 2024-05-20 | Outpatient (CLI) | payer OTHER | LOC: M RAD 11:36 | PROVIDERS: ATTEND Physician Assistant | DX: I65.23 Occlusion and stenosis of bilateral carotid arteries (principal) ==

== ENCOUNTER → 2024-06-05 | Outpatient (CLI) | payer OTHER | LOC: M RAD 14:43 | PROVIDERS: ATTEND Family Medicine | DX: E03.4 Atrophy of thyroid (acquired) (principal) ==

== ENCOUNTER → 2024-07-19 | Outpatient (CLI) | payer OTHER ==
[~2024-07-19] MED LIST changes: -FLOM0.4C39 PO; +TAMS-18 PO
[2024-07-19 10:57] LABS: THYROID STIMULATING HORMONE < 0.010 uIU/ML (0.55-4.78)
== END ==
LOC: M LAB 09:37
PROVIDERS: ATTEND Registered Nurse
DX: E06.3 Autoimmune thyroiditis (principal)